=== PATIENT | male | born 1950 | race Caucasian/White ===

== ENCOUNTER 2018-09-02 20:23 | Emergency (ER) | payer MEDICARE, BC ==
[~2018-09-02] VITALS: Ht 182.9 cm; Wt 88.5 kg
[2018-09-02] MEDS ORDERED: PAMELOR50 MG PO (20:34)
[2018-09-02] MEDS ORDERED: ZOCOR20 M1 ORAL (20:34)
[2018-09-02] MEDS ORDERED: ATIVAN1 MG ORAL (20:34)
[2018-09-02] MEDS ORDERED: PROSCAR5 MG ORAL (20:34)
--- NOTE | 2018-09-02 20:40 | NUR ---
ER Nurse Note: Pt walked in the the ER, came from home c/o s/p fall on the right hip at 1500. Pt stated he fell at a spa, hit right side of hip and elbow. Right hip swollen, bruised and painful with touch. Skin intact, cap refill less than 3 secs with blanching. Pt a&ox4,VSS, no signs of distress. Will continue to [facility].
[2018-09-02 20:45] VITALS: BP 127/74
--- NOTE | 2018-09-02 21:15 | Emergency Room Report ---
History of Present Illness General Chief Complaint: Multiple Trauma/Fall Source: Patient Present Illness HPI Patient is a 68-year-old male brought in by self after increased pain to his right thigh. Patient reports having slipped onto a wet floor and fallen onto the surface. He reports having increased pain to the upper right thigh near his buttock. Patient reports having some mild discomfort to his low back. He had reported being able to ambulate after the fall. He denies any numbness or weakness to his extremities. Patient presented because he noticed increased bruising and swelling to the lateral thigh. Allergies: Coded Allergies: No Known Allergies (Unverified , 09/02/18) Patient History Past Medical History: see triage record Reviewed Nursing Documentation: PMH: Agreed; PSxH: Agreed Nursing Documentation-PMH Past Medical History: No History, Except For Review of Systems All Other Systems: negative except mentioned in HPI Physical Exam Vital Signs Date Time Temp Pulse Resp B/P (MAP) Pulse Ox O2 Delivery O2 Flow Rate FiO2 09/02/18 20:27 98.8 94 15 92 Room Air 09/02/18 20:45 127/74 General Appearance: well appearing, no apparent distress, alert, GCS 15, non- toxic Head: normocephalic, atraumatic ENT: hearing grossly normal, normal voice Neck: full range of motion, supple Respiratory: lungs clear, normal breath sounds, no rhonchi, no respiratory distress, speaking full sentences Cardiovascular #1: normal inspection Musculoskeletal: swelling Neurologic: normal gait Psychiatric: mood/affect normal Skin: no rash Medical Decision Making Diagnostic Impression: Primary Impression: Fall Additional Impression: Traumatic hematoma of right thigh ER Course Patient presented after a slip and fall. Differential diagnosis include was not limited to fracture, contusion, muscle hematoma among others. Patient was noted to be ambulatory with a limp. He was noted to have some slight bruising to his right elbow. There was noted to be a large area of soft tissue swelling and bruising to the right buttock and upper thigh area. x-ray imaging of the right femur 4 views interpreted by me showed normal bony alignment without evident acute fracture, soft tissue swelling was noted. Patient was given prescription for medications for discomfort. He is advised to continue to ice the area and to follow-up with his doctor for recheck of the area in 2 days. Patient was to return if he had any concerns. Last Vital Signs Date Time Temp Pulse Resp B/P (MAP) Pulse Ox O2 Delivery O2 Flow Rate FiO2 09/02/18 20:45 98.8 80 15 127/74 92 Room Air Status: improved Disposition: HOME, SELF-CARE Condition: Stable Scripts Diclofenac Sodium (VOLTAREN) 100 Gm Gel..gram. 5 GM TP DAILY for pain, #100 GM Prov: Ant Moreno MD 09/02/18 Referrals: NON PHYSICIAN (PCP) Ant Moreno MD September 02, 2018 21:15
--- NOTE | 2018-09-02 21:27 | NUR ---
ER Nurse Note: Called and awaiting radiology. Ice applied to site. Pain meds given; pt tolerated well. Bed in lowest position; will continue to [facility].
[2018-09-02] MEDS ORDERED: VOLTAREN100 G1 TP (21:44)
--- NOTE | 2018-09-02 21:50 | NUR ---
ER Nurse Note: All orders completed per ERMD orders. Pt seen, treated, medically cleared for discharge by ERMD. Discharge instructions and prescriptions given with repeat verbazliaion by pt. Instructed pt to follow up with primary care provider within one week. Pt a&ox4, VSS, no signs of distress. ID band removed. Pt left with all belongings with steady gait via own transportation.
[2018-09-02 21:51] VITALS: BP 127/74
--- NOTE | 2018-09-03 13:00 | Diagnostic Imaging Report ---
Indication: Pain Thigh pain Findings: 2 views of the right femur were obtained. No acute fractures, malalignment, erosions or periostitis are identified. Soft tissue swelling the lateral part of the hip noted. IMPRESSION: Soft tissue swelling
== END 2018-09-02 21:51 | disposition home or self-care (01) ==
LOC: EMR 20:51
DX: S70.11XA Contusion of right thigh, initial encounter (principal); S50.01XA Contusion of right elbow, initial encounter; S30.0XXA Contusion of lower back and pelvis, initial encounter; W01.0XXA Fall on same level from slipping, tripping and stumbling without subsequent striking against object, initial encounter; Y92.9 Unspecified place or not applicable; M54.5 Low back pain
CPT/HCPCS: 99283